=== PATIENT | male | born 1935 | race Caucasian/White ===

== ENCOUNTER 2020-04-17 15:19 | Inpatient (IN) ==
[2020-04-21] MEDS ORDERED: Ondansetron ODT 4 MG TAB.RAPDIS PO PRN (20:04)
[2020-04-21] MEDS ORDERED: GuaiFENesin Liq 200 MG/10 ML UDC PO PRN (20:04)
[2020-04-21] MEDS: Gabapentin 400 MG CAPSULE PO SCH (22:32)
[2020-04-21] MEDS: Apixaban 5 MG TABLET PO SCH (22:32)
[2020-04-21] MEDS: Metoprolol XL (24 HR) Succ 50 MG TAB.ER.24H PO SCH (22:32)
[2020-04-21] MEDS: [UNRECOGNIZED DRUG - OTHER] OP SCH (22:32)
[2020-04-21] MEDS: *HR* LORazepam 0.5 MG TABLET PO SCH (22:32)
[2020-04-22 05:22] LABS: Basophils % 0.4 %; Eosinophils # 0.1 K/mcL (0.0-0.6); Eosinophils % 1.2 %; Hemoglobin 9.8 g/dL (12.9-16.9); Immature Granulocytes % 0.5 % (0-4); Lymphocytes # 1.3 K/mcL (0.6-4.6); Lymphocytes % 16.7 %; Mean Corpuscular HGB Conc 30.6 g/dL (31.6-35.5); Mean Corpuscular Hemoglobin 28.3 pg (28.0-33.3); Mean Corpuscular Volume 92.5 fL (83.0-100.0); Mean Platelet Volume 10.3 fL (9.4-12.4); Monocytes # 0.7 K/mcL (0.0-1.3); Monocytes % 9.4 %; Neutrophils # 5.6 K/mcL (1.6-8.9); Platelet Count 122 K/mcL (140-400); Red Blood Count 3.46 M/mcL (4.19-5.50); Segmented Neutrophils % 71.8 %; White Blood Count 7.8 K/mcL (4.3-11.1)
[2020-04-22 05:35] LABS: Alanine Aminotransferase 16 Units/L (7-52); Albumin 3.1 g/dL (3.5-5.7); Albumin/Globulin Ratio 1.1 (1.1-2.2); Alkaline Phosphatase 72 Units/L (34-104); Aspartate Amino Transferase 18 Units/L (13-39); BUN/Creatinine Ratio 30 (6-26); Bilirubin,Total 0.8 mg/dL (0.3-1.0); Blood Urea Nitrogen 36 mg/dL (8-23); Calcium 8.8 mg/dL (8.6-10.3); Carbon Dioxide 28 mEq/L (23-29); Chloride 103 mEq/L (98-107); Globulin 2.8 g/dL (2.4-3.5); Glucose 114 mg/dL (70-105); Magnesium 2.1 mg/dL (1.6-2.6); Osmolality,Calculated 293 (280-300); Sodium 137 mEq/L (136-145); Total Protein 5.9 g/dL (6.4-8.9); eGFR For African Americans > 60 (> 60); eGFR For Non-African Americans 58 (> 60)
[2020-04-22] MEDS: *HR* HYDROcodone/Acet 5/325 mg TABLET PO PRN (06:17)
[2020-04-22] MEDS: polyethylene glycoL 3350 17 GM POWD.PACK PO SCH (08:18)
[2020-04-22] MEDS: Isosorbide MONOnitrate (24 HR) 30 MG TAB.ER.24H PO SCH (08:19)
[2020-04-22] MEDS: *HR* LORazepam 0.5 MG TABLET PO SCH ×3 (08:20→21:29)
[2020-04-22] MEDS: Gabapentin 400 MG CAPSULE PO SCH ×2 (08:21→21:28)
[2020-04-22] MEDS: Aspirin Enteric Coated 81 MG Tablet PO SCH (08:21)
[2020-04-22] MEDS: Apixaban 5 MG TABLET PO SCH ×2 (08:21→21:28)
[2020-04-22] MEDS: [UNRECOGNIZED DRUG - OTHER] OP SCH ×2 (08:24→21:29)
[2020-04-22] MEDS: Finasteride 5 MG TABLET PO SCH (08:24)
[2020-04-22] MEDS: Metoprolol XL (24 HR) Succ 50 MG TAB.ER.24H PO SCH ×2 (08:25→21:29)
[2020-04-22] MEDS: Bumetanide 1 MG TABLET PO SCH (08:27)
[2020-04-23] MEDS: Apixaban 5 MG TABLET PO SCH ×2 (09:52→20:57)
[2020-04-23] MEDS: Bumetanide 1 MG TABLET PO SCH (09:52)
[2020-04-23] MEDS: Aspirin Enteric Coated 81 MG Tablet PO SCH (09:53)
[2020-04-23] MEDS: Gabapentin 400 MG CAPSULE PO SCH ×2 (09:53→20:57)
[2020-04-23] MEDS: Isosorbide MONOnitrate (24 HR) 30 MG TAB.ER.24H PO SCH (09:53)
[2020-04-23] MEDS: Metoprolol XL (24 HR) Succ 50 MG TAB.ER.24H PO SCH ×2 (09:53→20:58)
[2020-04-23] MEDS: *HR* LORazepam 0.5 MG TABLET PO SCH ×3 (09:53→20:57)
[2020-04-23] MEDS: Finasteride 5 MG TABLET PO SCH (09:53)
[2020-04-23] MEDS: [UNRECOGNIZED DRUG - OTHER] OP SCH ×2 (10:07→20:58)
[2020-04-23] MEDS: polyethylene glycoL 3350 17 GM POWD.PACK PO SCH (10:07)
[2020-04-24] MEDS: *HR* HYDROcodone/Acet 5/325 mg TABLET PO PRN ×2 (05:01→20:27)
[2020-04-24 06:17] LABS: Basophils % 0.5 %; Eosinophils # 0.1 K/mcL (0.0-0.6); Eosinophils % 2.4 %; Hematocrit 31.6 % (37.5-50.1); Hemoglobin 9.3 g/dL (12.9-16.9); Immature Granulocytes % 0.3 % (0-4); Lymphocytes # 1.2 K/mcL (0.6-4.6); Lymphocytes % 20.2 %; Mean Corpuscular HGB Conc 29.4 g/dL (31.6-35.5); Mean Corpuscular Hemoglobin 27.4 pg (28.0-33.3); Mean Corpuscular Volume 92.9 fL (83.0-100.0); Mean Platelet Volume 10.9 fL (9.4-12.4); Monocytes # 0.6 K/mcL (0.0-1.3); Monocytes % 9.8 %; Neutrophils # 3.8 K/mcL (1.6-8.9); Platelet Count 135 K/mcL (140-400); Red Cell Distribution Width 19.7 % (11.5-14.5); Segmented Neutrophils % 66.8 %; White Blood Count 5.7 K/mcL (4.3-11.1)
[2020-04-24 06:55] LABS: BUN/Creatinine Ratio 25 (6-26); Blood Urea Nitrogen 31 mg/dL (8-23); Calcium 8.7 mg/dL (8.6-10.3); Carbon Dioxide 29 mEq/L (23-29); Chloride 102 mEq/L (98-107); Glucose 131 mg/dL (70-105); Osmolality,Calculated 290 (280-300); Potassium 4.1 mEq/L (3.5-5.1); Sodium 136 mEq/L (136-145); eGFR For African Americans > 60 (> 60); eGFR For Non-African Americans 56 (> 60)
[2020-04-24] MEDS: *HR* LORazepam 0.5 MG TABLET PO SCH ×3 (08:59→20:26)
[2020-04-24] MEDS: Aspirin Enteric Coated 81 MG Tablet PO SCH (08:59)
[2020-04-24] MEDS: Bumetanide 1 MG TABLET PO SCH (08:59)
[2020-04-24] MEDS: Finasteride 5 MG TABLET PO SCH (09:00)
[2020-04-24] MEDS: Gabapentin 400 MG CAPSULE PO SCH ×2 (09:00→20:27)
[2020-04-24] MEDS: polyethylene glycoL 3350 17 GM POWD.PACK PO SCH (09:00)
[2020-04-24] MEDS: Apixaban 5 MG TABLET PO SCH ×2 (09:00→20:26)
[2020-04-24] MEDS: Isosorbide MONOnitrate (24 HR) 30 MG TAB.ER.24H PO SCH (09:00)
[2020-04-24] MEDS: Metoprolol XL (24 HR) Succ 50 MG TAB.ER.24H PO SCH ×2 (09:00→20:27)
[2020-04-24] MEDS: [UNRECOGNIZED DRUG - OTHER] OP SCH (09:01)
[2020-04-25] MEDS: Aspirin Enteric Coated 81 MG Tablet PO SCH (08:14)
[2020-04-25] MEDS: Isosorbide MONOnitrate (24 HR) 30 MG TAB.ER.24H PO SCH (08:14)
[2020-04-25] MEDS: Metoprolol XL (24 HR) Succ 50 MG TAB.ER.24H PO SCH ×2 (08:14→20:18)
[2020-04-25] MEDS: *HR* LORazepam 0.5 MG TABLET PO SCH ×3 (08:14→20:19)
[2020-04-25] MEDS: Apixaban 5 MG TABLET PO SCH ×2 (08:14→20:19)
[2020-04-25] MEDS: Finasteride 5 MG TABLET PO SCH (08:14)
[2020-04-25] MEDS: Gabapentin 400 MG CAPSULE PO SCH ×2 (08:14→20:19)
[2020-04-25] MEDS: Bumetanide 1 MG TABLET PO SCH (08:15)
[2020-04-25] MEDS: polyethylene glycoL 3350 17 GM POWD.PACK PO SCH (08:15)
[2020-04-25] MEDS: *HR* HYDROcodone/Acet 5/325 mg TABLET PO PRN (08:24)
[2020-04-26 06:14] LABS: Hematocrit 31.1 % (37.5-50.1); Hemoglobin 9.3 g/dL (12.9-16.9); Mean Corpuscular HGB Conc 29.9 g/dL (31.6-35.5); Mean Corpuscular Hemoglobin 27.8 pg (28.0-33.3); Mean Corpuscular Volume 92.8 fL (83.0-100.0); Mean Platelet Volume 10.4 fL (9.4-12.4); Platelet Count 152 K/mcL (140-400); Red Blood Count 3.35 M/mcL (4.19-5.50); Red Cell Distribution Width 19.4 % (11.5-14.5)
[2020-04-26 06:33] LABS: BUN/Creatinine Ratio 22 (6-26); Blood Urea Nitrogen 28 mg/dL (8-23); Calcium 8.8 mg/dL (8.6-10.3); Carbon Dioxide 29 mEq/L (23-29); Chloride 104 mEq/L (98-107); Glucose 107 mg/dL (70-105); Magnesium 2.2 mg/dL (1.6-2.6); Osmolality,Calculated 294 (280-300); Potassium 4.3 mEq/L (3.5-5.1); Sodium 139 mEq/L (136-145); eGFR For African Americans > 60 (> 60); eGFR For Non-African Americans 53 (> 60)
[2020-04-26] MEDS: *HR* LORazepam 0.5 MG TABLET PO SCH ×3 (08:34→21:08)
[2020-04-26] MEDS: Bumetanide 1 MG TABLET PO SCH (08:34)
[2020-04-26] MEDS: Metoprolol XL (24 HR) Succ 50 MG TAB.ER.24H PO SCH ×2 (08:35→21:09)
[2020-04-26] MEDS: Aspirin Enteric Coated 81 MG Tablet PO SCH (08:35)
[2020-04-26] MEDS: polyethylene glycoL 3350 17 GM POWD.PACK PO SCH (08:35)
[2020-04-26] MEDS: Finasteride 5 MG TABLET PO SCH (08:35)
[2020-04-26] MEDS: Gabapentin 400 MG CAPSULE PO SCH ×2 (08:35→21:08)
[2020-04-26] MEDS: Isosorbide MONOnitrate (24 HR) 30 MG TAB.ER.24H PO SCH (08:35)
[2020-04-26] MEDS: Apixaban 5 MG TABLET PO SCH ×2 (08:35→21:08)
[2020-04-26] MEDS: *HR* HYDROcodone/Acet 5/325 mg TABLET PO PRN (15:52)
[2020-04-27] MEDS: polyethylene glycoL 3350 17 GM POWD.PACK PO SCH (07:54)
[2020-04-27] MEDS: Gabapentin 400 MG CAPSULE PO SCH ×2 (07:54→21:14)
[2020-04-27] MEDS: *HR* LORazepam 0.5 MG TABLET PO SCH ×3 (07:54→21:14)
[2020-04-27] MEDS: Apixaban 5 MG TABLET PO SCH ×2 (07:55→21:14)
[2020-04-27] MEDS: Aspirin Enteric Coated 81 MG Tablet PO SCH (07:55)
[2020-04-27] MEDS: Finasteride 5 MG TABLET PO SCH (07:55)
[2020-04-27] MEDS: Metoprolol XL (24 HR) Succ 50 MG TAB.ER.24H PO SCH ×2 (07:55→21:14)
[2020-04-27] MEDS: Bumetanide 1 MG TABLET PO SCH (07:55)
[2020-04-27] MEDS: Isosorbide MONOnitrate (24 HR) 30 MG TAB.ER.24H PO SCH (07:55)
[2020-04-28 05:56] LABS: Hematocrit 31.4 % (37.5-50.1); Hemoglobin 9.5 g/dL (12.9-16.9); Mean Corpuscular HGB Conc 30.3 g/dL (31.6-35.5); Mean Corpuscular Hemoglobin 27.9 pg (28.0-33.3); Mean Corpuscular Volume 92.4 fL (83.0-100.0); Platelet Count 153 K/mcL (140-400); Red Cell Distribution Width 19.6 % (11.5-14.5); White Blood Count 6.6 K/mcL (4.3-11.1)
[2020-04-28 06:07] LABS: BUN/Creatinine Ratio 19 (6-26); Blood Urea Nitrogen 23 mg/dL (8-23); Calcium 8.9 mg/dL (8.6-10.3); Carbon Dioxide 28 mEq/L (23-29); Chloride 103 mEq/L (98-107); Glucose 106 mg/dL (70-105); Magnesium 2.2 mg/dL (1.6-2.6); Osmolality,Calculated 288 (280-300); Sodium 137 mEq/L (136-145); eGFR For African Americans > 60 (> 60); eGFR For Non-African Americans 58 (> 60)
[2020-04-28] MEDS: Bumetanide 1 MG TABLET PO SCH (08:06)
[2020-04-28] MEDS: Apixaban 5 MG TABLET PO SCH ×2 (08:06→21:10)
[2020-04-28] MEDS: Isosorbide MONOnitrate (24 HR) 30 MG TAB.ER.24H PO SCH (08:06)
[2020-04-28] MEDS: Aspirin Enteric Coated 81 MG Tablet PO SCH (08:07)
[2020-04-28] MEDS: Gabapentin 400 MG CAPSULE PO SCH ×2 (08:07→21:10)
[2020-04-28] MEDS: *HR* HYDROcodone/Acet 5/325 mg TABLET PO PRN (08:07)
[2020-04-28] MEDS: polyethylene glycoL 3350 17 GM POWD.PACK PO SCH (08:07)
[2020-04-28] MEDS: Metoprolol XL (24 HR) Succ 50 MG TAB.ER.24H PO SCH ×2 (08:07→21:10)
[2020-04-28] MEDS: Finasteride 5 MG TABLET PO SCH (08:07)
[2020-04-28] MEDS: *HR* LORazepam 0.5 MG TABLET PO SCH ×3 (08:07→21:10)
[2020-04-29] MEDS: Apixaban 5 MG TABLET PO SCH ×2 (08:15→19:45)
[2020-04-29] MEDS: Gabapentin 400 MG CAPSULE PO SCH ×2 (08:15→19:44)
[2020-04-29] MEDS: polyethylene glycoL 3350 17 GM POWD.PACK PO SCH (08:15)
[2020-04-29] MEDS: Aspirin Enteric Coated 81 MG Tablet PO SCH (08:16)
[2020-04-29] MEDS: *HR* LORazepam 0.5 MG TABLET PO SCH ×3 (08:16→19:45)
[2020-04-29] MEDS: Bumetanide 1 MG TABLET PO SCH (08:16)
[2020-04-29] MEDS: Isosorbide MONOnitrate (24 HR) 30 MG TAB.ER.24H PO SCH (08:16)
[2020-04-29] MEDS: Metoprolol XL (24 HR) Succ 50 MG TAB.ER.24H PO SCH ×2 (08:16→19:45)
[2020-04-29] MEDS: Finasteride 5 MG TABLET PO SCH (08:17)
[2020-04-30] MEDS: *HR* HYDROcodone/Acet 5/325 mg TABLET PO PRN (00:30)
[2020-04-30] MEDS: Aspirin Enteric Coated 81 MG Tablet PO SCH (08:34)
[2020-04-30] MEDS: Gabapentin 400 MG CAPSULE PO SCH ×2 (08:34→20:19)
[2020-04-30] MEDS: *HR* LORazepam 0.5 MG TABLET PO SCH ×3 (08:34→20:19)
[2020-04-30] MEDS: Isosorbide MONOnitrate (24 HR) 30 MG TAB.ER.24H PO SCH (08:34)
[2020-04-30] MEDS: polyethylene glycoL 3350 17 GM POWD.PACK PO SCH (08:35)
[2020-04-30] MEDS: Metoprolol XL (24 HR) Succ 50 MG TAB.ER.24H PO SCH ×2 (08:35→20:19)
[2020-04-30] MEDS: Bumetanide 1 MG TABLET PO SCH (08:35)
[2020-04-30] MEDS: Finasteride 5 MG TABLET PO SCH (08:35)
[2020-04-30] MEDS: Apixaban 5 MG TABLET PO SCH ×2 (08:35→20:19)
[2020-05-01] MEDS: Aspirin Enteric Coated 81 MG Tablet PO SCH (09:58)
[2020-05-01] MEDS: Isosorbide MONOnitrate (24 HR) 30 MG TAB.ER.24H PO SCH (09:59)
[2020-05-01] MEDS: Metoprolol XL (24 HR) Succ 50 MG TAB.ER.24H PO SCH ×2 (09:59→20:14)
[2020-05-01] MEDS: Finasteride 5 MG TABLET PO SCH (09:59)
[2020-05-01] MEDS: Bumetanide 1 MG TABLET PO SCH (09:59)
[2020-05-01] MEDS: polyethylene glycoL 3350 17 GM POWD.PACK PO SCH (09:59)
[2020-05-01] MEDS: Gabapentin 400 MG CAPSULE PO SCH ×2 (09:59→20:14)
[2020-05-01] MEDS: Apixaban 5 MG TABLET PO SCH ×2 (09:59→20:13)
[2020-05-01] MEDS: *HR* LORazepam 0.5 MG TABLET PO SCH ×4 (09:59→20:12)
[2020-05-01] MEDS: *HR* HYDROcodone/Acet 5/325 mg TABLET PO PRN (18:20)
[2020-05-02 05:43] LABS: Basophils % 0.6 %; Eosinophils # 0.2 K/mcL (0.0-0.6); Eosinophils % 2.9 %; Hematocrit 30.1 % (37.5-50.1); Hemoglobin 9.1 g/dL (12.9-16.9); Immature Granulocytes % 0.5 % (0-4); Lymphocytes # 1.2 K/mcL (0.6-4.6); Mean Corpuscular HGB Conc 30.2 g/dL (31.6-35.5); Mean Corpuscular Volume 92.6 fL (83.0-100.0); Mean Platelet Volume 9.6 fL (9.4-12.4); Monocytes # 0.6 K/mcL (0.0-1.3); Neutrophils # 4.1 K/mcL (1.6-8.9); Platelet Count 131 K/mcL (140-400); Red Blood Count 3.25 M/mcL (4.19-5.50); Red Cell Distribution Width 19.9 % (11.5-14.5); White Blood Count 6.2 K/mcL (4.3-11.1)
[2020-05-02 06:03] LABS: BUN/Creatinine Ratio 19 (6-26); Blood Urea Nitrogen 24 mg/dL (8-23); Calcium 8.6 mg/dL (8.6-10.3); Carbon Dioxide 28 mEq/L (23-29); Chloride 103 mEq/L (98-107); Glucose 110 mg/dL (70-105); Osmolality,Calculated 291 (280-300); Potassium 3.9 mEq/L (3.5-5.1); Sodium 138 mEq/L (136-145); eGFR For African Americans > 60 (> 60); eGFR For Non-African Americans 56 (> 60)
[2020-05-02 07:14] VITALS: BP 156/83
[2020-05-02] MEDS: Isosorbide MONOnitrate (24 HR) 30 MG TAB.ER.24H PO SCH (08:37)
[2020-05-02] MEDS: *HR* LORazepam 0.5 MG TABLET PO SCH (08:38)
[2020-05-02] MEDS: Apixaban 5 MG TABLET PO SCH (08:38)
[2020-05-02] MEDS: polyethylene glycoL 3350 17 GM POWD.PACK PO SCH (08:38)
[2020-05-02] MEDS: Finasteride 5 MG TABLET PO SCH (08:38)
[2020-05-02] MEDS: Aspirin Enteric Coated 81 MG Tablet PO SCH (08:38)
[2020-05-02] MEDS: Metoprolol XL (24 HR) Succ 50 MG TAB.ER.24H PO SCH (08:38)
[2020-05-02] MEDS: Gabapentin 400 MG CAPSULE PO SCH (08:38)
== END 2020-05-02 10:15 | disposition home health service (06) | DRG 291 ==
LOC: INPGRE 04-21 18:43
PROVIDERS: ADMIT Family Medicine; ATTEND Family Medicine